=== PATIENT | female | born 1955 | race Caucasian/White ===

== ENCOUNTER 2017-12-22 18:14 | Emergency (ER) | payer MEDICARE, MEDICAID ==
[~2017-12-22] VITALS: Ht 175.3 cm; Wt 39.0 kg
[~2017-12-22 18:14] MED LIST: ASPI81TA52 PO; COL100C PO; ESTR0.452 PO; ETOD300C29 PO; NORCO10T PO; OXYB10TA4 PO; PANT40TA4 PO; ROSU40TA PO
[2017-12-22 18:20] VITALS: BP 114/79
[2017-12-22] MEDS ORDERED: PROCHC RC (18:51)
== END 2017-12-22 18:59 | disposition home or self-care (01) ==
LOC: ER 18:14
DX: K64.4 Residual hemorrhoidal skin tags (principal); F17.210 Nicotine dependence, cigarettes, uncomplicated; I10 Essential (primary) hypertension; J44.9 Chronic obstructive pulmonary disease, unspecified; E11.9 Type 2 diabetes mellitus without complications; G89.29 Other chronic pain; E78.00 Pure hypercholesterolemia, unspecified; I25.10 Atherosclerotic heart disease of native coronary artery without angina pectoris; Z90.49 Acquired absence of other specified parts of digestive tract; Z90.710 Acquired absence of both cervix and uterus; Z86.73 Personal history of transient ischemic attack (TIA), and cerebral infarction without residual deficits; Z79.82 Long term (current) use of aspirin
CPT/HCPCS: 99282; 99283

== ENCOUNTER 2019-01-04 04:51 | Emergency (ER) | payer MEDICARE, MEDICAID ==
[~2019-01-04] VITALS: Ht 175.3 cm; Wt 47.7 kg
[~2019-01-04 04:51] MED LIST changes: +ALBU6.7H9 INH; +GUAI120015 PO; +PROCHC RC
[2019-01-04 04:57] VITALS: BP 147/95
--- NOTE | 2019-01-04 05:08 | NUR ---
PLACED PT IN RT ARM SLING PER DR JEAN
[2019-01-04] MEDS ORDERED: IBUP-2697 PO (05:17)
== END 2019-01-04 05:42 | disposition home or self-care (01) ==
LOC: ER 04:52
DX: M25.511 Pain in right shoulder (principal); R07.81 Pleurodynia; I25.10 Atherosclerotic heart disease of native coronary artery without angina pectoris; E78.00 Pure hypercholesterolemia, unspecified; I10 Essential (primary) hypertension; J43.9 Emphysema, unspecified; E11.9 Type 2 diabetes mellitus without complications; G89.29 Other chronic pain; F17.210 Nicotine dependence, cigarettes, uncomplicated; Z86.73 Personal history of transient ischemic attack (TIA), and cerebral infarction without residual deficits; Z90.49 Acquired absence of other specified parts of digestive tract; Z90.710 Acquired absence of both cervix and uterus; Z98.890 Other specified postprocedural states; Z56.0 Unemployment, unspecified; Z79.82 Long term (current) use of aspirin; Z79.899 Other long term (current) drug therapy; Y04.0XXA Assault by unarmed brawl or fight, initial encounter; Y93.89 Activity, other specified; Y92.89 Other specified places as the place of occurrence of the external cause; Y99.8 Other external cause status
CPT/HCPCS: 71100; 73060; 99283

== ENCOUNTER 2019-06-21 06:22 | Emergency (ER) | payer MEDICARE, MEDICAID ==
[~2019-06-21] VITALS: Ht 175.3 cm; Wt 45.5 kg
[~2019-06-21 06:22] MED LIST changes: +IBUP-2697 PO
[2019-06-21 06:28] VITALS: BP 139/76
[2019-06-21] MEDS ORDERED: BUPIVAcaine/PF 7.5 mg/ml (0.75%) 30ml vial IJ ONE (06:55)
[2019-06-21] MEDS ORDERED: BUPIVAcaine/PF 7.5mg/ml (0.75%) 10ml vial IJ ONE (07:00)
== END 2019-06-21 07:59 | disposition home or self-care (01) ==
LOC: ER 06:23
DX: M62.838 Other muscle spasm (principal); M25.511 Pain in right shoulder; M25.512 Pain in left shoulder; M54.2 Cervicalgia; G43.909 Migraine, unspecified, not intractable, without status migrainosus; I25.10 Atherosclerotic heart disease of native coronary artery without angina pectoris; E78.00 Pure hypercholesterolemia, unspecified; I10 Essential (primary) hypertension; J43.9 Emphysema, unspecified; E11.9 Type 2 diabetes mellitus without complications; G89.29 Other chronic pain; F17.200 Nicotine dependence, unspecified, uncomplicated; Z90.49 Acquired absence of other specified parts of digestive tract; Z90.710 Acquired absence of both cervix and uterus; Z98.890 Other specified postprocedural states; Z79.82 Long term (current) use of aspirin; Z79.899 Other long term (current) drug therapy
CPT/HCPCS: 20552; 99284

== ENCOUNTER 2019-08-11 17:09 | Emergency (ER) | payer MEDICARE, MEDICAID ==
[~2019-08-11] VITALS: Ht 175.3 cm; Wt 50.5 kg
[2019-08-11 17:12] VITALS: BP 130/82
--- NOTE | 2019-08-11 17:21 | NUR ---
Geraldine Bruce [employer]UR[employer] CLAIM REPRESENTATIVE at bedside to kenneth pt, pt c/o rt shoulder "popping" and rt upper arm x2 days, no obvious deformity, decreased ROM of rt arm due to pain, taking motrin and norco (has for chronic back pain), waiting for xray
--- NOTE | 2019-08-11 17:27 | NUR ---
pt to xray
== END 2019-08-11 18:03 | disposition home or self-care (01) ==
LOC: ER 17:10
DX: S43.401A Unspecified sprain of right shoulder joint, initial encounter (principal); M79.621 Pain in right upper arm; R20.0 Anesthesia of skin; I25.10 Atherosclerotic heart disease of native coronary artery without angina pectoris; E78.00 Pure hypercholesterolemia, unspecified; I10 Essential (primary) hypertension; J44.9 Chronic obstructive pulmonary disease, unspecified; E11.9 Type 2 diabetes mellitus without complications; G89.29 Other chronic pain; Z86.73 Personal history of transient ischemic attack (TIA), and cerebral infarction without residual deficits; Z90.89 Acquired absence of other organs; Z90.710 Acquired absence of both cervix and uterus; Z98.890 Other specified postprocedural states; Z56.0 Unemployment, unspecified; Z79.82 Long term (current) use of aspirin; Z79.899 Other long term (current) drug therapy; W19.XXXA Unspecified fall, initial encounter; Y93.89 Activity, other specified; Y92.89 Other specified places as the place of occurrence of the external cause; Y99.8 Other external cause status
CPT/HCPCS: 73030; 73060; 99284

== ENCOUNTER 2022-08-14 12:27 | Emergency (ER) | payer MEDICARE, MEDICAID ==
[~2022-08-14] VITALS: Ht 175.3 cm; Wt 50.0 kg
[~2022-08-14 12:27] MED LIST changes: +ALBU6.7H14 INH; -ALBU6.7H9 INH; -PANT40TA4 PO; +PANT40TA54 PO
[2022-08-14 12:47] VITALS: BP 131/84
--- NOTE | 2022-08-14 13:04 | NUR ---
Pt in ER10. Pt has a rash on her torso and arms, BLE that started two days ago. Pt was started on Prednisone for her rash. Pt cont to take Clindamycin and rash has cont to get worse.
[2022-08-14] MEDS ORDERED: CEPH-585 PO (13:07)
[2022-08-14] MEDS ORDERED: methylPREDNISolone sod succ 125mg/2ml vial IM ONE (13:10)
[2022-08-14] MEDS ORDERED: diphenhydrAMINE 50 mg/ml inj IM ONE (13:10)
[2022-08-14] MEDS ORDERED: CEPH500C2 PO (13:57)
== END 2022-08-14 13:56 | disposition home or self-care (01) ==
LOC: ER 12:27
DX: L50.9 Urticaria, unspecified (principal); E78.00 Pure hypercholesterolemia, unspecified; I10 Essential (primary) hypertension; J44.9 Chronic obstructive pulmonary disease, unspecified; E11.9 Type 2 diabetes mellitus without complications; Z88.1 Allergy status to other antibiotic agents; Z98.890 Other specified postprocedural states; Z90.710 Acquired absence of both cervix and uterus; Z56.0 Unemployment, unspecified
CPT/HCPCS: 96372; 99284; J1200; J2930

== ENCOUNTER 2023-01-12 12:52 | Outpatient (CLI) | payer MEDICARE, MEDICAID ==
[~2023-01-12 12:52] MED LIST changes: +CEPH-585 PO
== END 2023-01-12 23:59 | disposition home or self-care (01) ==
LOC: RAD 12:52
PROVIDERS: ATTEND Otolaryngology
DX: R13.14 Dysphagia, pharyngoesophageal phase (principal); K21.9 Gastro-esophageal reflux disease without esophagitis
CPT/HCPCS: 74230